=== PATIENT | male | born 1960 | race Caucasian/White ===

== ENCOUNTER 2021-06-25 12:52 | Emergency (ER) | payer OTHER ==
[~2021-06-25] VITALS: Ht 175.3 cm; Wt 83.9 kg
[2021-06-25] MEDS ORDERED: VENTOLIN HFA18 GM INH (14:01)
[2021-06-25] MEDS ORDERED: AZITHROMYCIN250 MG PO (14:02)
[2021-06-25] MEDS ORDERED: DEXAMETHASONE6 MG PO (14:03)
== END 2021-06-25 14:15 | disposition home or self-care (01) ==
LOC: FSED 13:17
DX: R07.89 Other chest pain (principal); R05 Cough; U07.1 COVID-19; J12.82 Pneumonia due to coronavirus disease 2019; R51.9 Headache, unspecified; K21.9 Gastro-esophageal reflux disease without esophagitis; J98.01 Acute bronchospasm; R94.31 Abnormal electrocardiogram [ECG] [EKG]
CPT/HCPCS: 71046; 93005; 99283